=== PATIENT | female | born 1960 | race Caucasian/White ===

== ENCOUNTER 2018-09-23 16:36 | Emergency (ER) | payer OTHER ==
--- OUTSIDE RECORDS SUMMARY | 2018-09-23 16:38 | XMS REPORT | Clinical Summary ---
:1960 Author Organization [facility] Address [address] [place] [id number] Care Team Providers Name Role Phone Emely Oropeza MD Primary Care Provider Allergies Active Allergy Reactions Severity Noted Date Comments Amoxicillin-Pot Clavulanate GI Intolerance 01/25/2017 Cephalexin 10/24/2015 CHEST PAIN, SHORT OF BREATH Sulfa (Sulfonamide Rash Low 10/24/2015 Antibiotics) Medications Medication Sig Dispensed Refills Start Date End Date Status fluticasone (FLONASE) 2 sprays by Each 16 g 11 10/02/2016 Active 50 mcg/actuation nasal Nare route daily. sprayIndications: Non-seasonal allergic rhinitis due to other allergic trigger Active Problems Problem Noted Date Acute bronchitis 10/24/2015 Atopic rhinitis 10/24/2015 Benign essential HTN 10/24/2015 Diarrhea 10/24/2015 Lumbar sprain 10/24/2015 Menopausal symptom 10/24/2015 Right upper quadrant pain 10/24/2015 Family History Medical History Relation Name Comments Heart disease Father at work while laughing, GM 98%. Heart disease Mother after second bypass 09/14. at 80. Hypertension Mother Relation Name Status Comments Father Mother Social History Tobacco Use Types Packs/Day Years Used Date Never Smoker Tobacco Cessation: Counseling Given: No Alcohol Use Drinks/Week oz/Week Comments No Sex Assigned at Date Recorded Not on file Job Start Date Occupation Industry Not on file Not on file Not on file Travel History Travel Start Travel End No recent travel history available. Last Filed Vital Signs Not on file Plan of Treatment Health Maintenance Due Date Last Done Comments CERVICAL CANCER SCREENING 1982 BREAST CANCER SCREENING 12/17/2011 SHINGLES VACCINES (#1) 12/17/2011 INFLUENZA VACCINE 02/26/2018 COLON CANCER SCREENING 11/26/2018 11/26/2008 Results Not on fileafter 09/22/2017 Insurance Payer Benefit Plan / Group Subscriber ID Type Phone Address AETNA AETNA HMO,POS,EPO, MC/EC xxxxxxxxx HMO Advance Directives Patient has advance care planning documents on file. For more information, please contact:Alberto Brown[address] [place] [address]
[2018-09-23 17:38] LABS: Absolute Lymphocytes (CBC) 3.1 K/uL (0.7-4.9); Absolute Monocytes 0.7 K/uL (0.1-1.3); Absolute Neutrophil 5.8 K/uL (1.8-8.0); Basophils % 0.7 % (0-1.3); Eosinophils % 0.9 % (0-4.4); Hematocrit 41.8 % (36.0-45.0); Lymphocytes % 31.8 % (15.3-44.8); MPV 8.4 fL (7.6-11.3); Monocytes % 7.5 % (3.3-12.3); Protime INR 1.03; RBC Red Blood Cell Count 4.75 M/uL (3.86-4.86)
[2018-09-23] MEDS ORDERED: MEPERIDINE HCL 25 MG/0.5 ML ONE (17:47)
[2018-09-23] MEDS ORDERED: CYCLOBENZAPRINE 10 MG TAB ONE (17:47)
[2018-09-23] MEDS ORDERED: DEXAMETHASONE 4 MG/ML VIAL ONE (17:47)
[2018-09-23 17:53] LABS: ALT/SGPT 29 U/L (12-78); AST/SGOT 22 U/L (15-37); Albumin 4.1 g/dL (3.4-5.0); Alkaline Phosphatase 66 U/L (45-117); BUN Blood Urea Nitrogen 17 mg/dL (7-18); Bicarbonate 28 mmol/L (21-32); Bilirubin Direct < 0.1 mg/dL (0-0.2); Bilirubin Total 0.3 mg/dL (0.2-1.0); Glucose Level 95 mg/dL (74-106); Magnesium 2.3 mg/dL (1.8-2.4); NT PRO-BNP 65 pg/mL (<125); Potassium 4.2 mmol/L (3.5-5.1); Protein, Total 7.8 g/dL (6.4-8.2); Sodium Level 139 mmol/L (136-145); Troponin (Emerg Dept Use Only) < 0.02 ng/mL (0.0-0.045)
--- NOTE | 2018-09-23 18:34 | EDPHYS ---
Physician Documentation [facility] Name: Manda Paula Age: 57 yrs Sex: Female : 1960 Arrival Date: 09/23/2018 Time: 16:40 Bed 24 Private MD: Nicolette Alvarez K ED Physician Andrea Cruz HPI: 09/23 17:25 This 57 yrs old Female presents to ER via Ambulatory with complaints of Arm rn Pain, Shoulder Pain. 17:25 The patient or guardian complains of pain, that is acute. The complaints affect the rn anterior aspect of left shoulder and left bicep. Onset: The symptoms/episode began/occurred this morning. Modifying factors: The symptoms are alleviated by remaining still, the symptoms are aggravated by movement, lifting weight. Severity of symptoms: At their worst the symptoms were moderate, in the emergency department the symptoms are unchanged. The patient has experienced similar episodes in the past. Reports several similar episodes in past, thinks pulled muscle or something, woke up with pain, worse with movement of arm, no chest pain/sob. Had recent negative mammogram last month. Seen by pcp today and sent here to make sure it wasn't her heart. No fever/cough/abd pain. No vomiting. . Historical: - Allergies: 16:54 Sulfa (Sulfonamide Antibiotics); ph - Home Meds: 16:54 losartan oral oral [Active]; ph - PMHx: 16:54 Hypertension; ph - PSHx: 16:54 Tubal ligation; Hysterectomy; upper gi; lower gi; ph - Immunization history:: Adult Immunizations unknown. - Social history:: Smoking status: Patient/guardian denies using tobacco. - Ebola Screening: : No symptoms or risks identified at this time. - Family history:: not pertinent. - Hospitalizations: : No recent hospitalization is reported. ROS: 17:25 Constitutional: Negative for fever, chills, and weight loss, Eyes: Negative for injury, rn pain, redness, and discharge, ENT: Negative for injury, pain, and discharge, Neck: Negative for injury, pain, and swelling, Cardiovascular: Negative for chest pain, palpitations, and edema, Respiratory: Negative for shortness of breath, cough, wheezing, and pleuritic chest pain, Abdomen/GI: Negative for abdominal pain, nausea, vomiting, diarrhea, and constipation, MS/Extremity: + left arm pain radiates down arm Skin: Negative for injury, rash, and discoloration, Neuro: Negative for headache, weakness, numbness, tingling, and seizure. Exam: 17:25 Constitutional: This is a well developed, well nourished patient who is awake, alert, rn and in no acute distress. Head/Face: Normocephalic, atraumatic. Eyes: Pupils equal round and reactive to light, extra-ocular motions intact. Lids and lashes normal. Conjunctiva and sclera are non-icteric and not injected. Cornea within normal limits. Periorbital areas with no swelling, redness, or edema. Neck: Trachea midline, no thyromegaly or masses palpated, and no cervical lymphadenopathy. Supple, full range of motion without nuchal rigidity, or vertebral point tenderness. No Meningismus. Cardiovascular: Regular rate and rhythm. No pulse deficits. Respiratory: Lungs have equal breath sounds bilaterally, clear to auscultation. No increased work of breathing, no retractions or nasal flaring. Abdomen/GI: soft, non-tender Skin: Warm, dry with normal turgor. Normal color with no rashes, no lesions, and no evidence of cellulitis. MS/ Extremity: Pulses equal, no cyanosis. Neurovascular intact. Painful ROM of left shoulder, no deformity, no skin changes, no rashes, no cyanosis. Neuro: Awake and alert, GCS 15, oriented to person, place, time, and situation. Cranial nerves II-XII grossly intact. Motor strength 5/5 in all extremities. Sensory grossly intact. Cerebellar exam normal. Vital Signs: 16:55 BP 149 / 60; Pulse 71; Resp 18; Pulse Ox 100% on R/A; Weight 83.46 kg; Height 5 ft. 1 ph in. (154.94 cm); Pain 10/10; 17:50 BP 120 / 71; Pulse 72; Resp 18; Pulse Ox 97% on R/A; Pain 9/10; mg2 19:10 BP 123 / 69; Pulse 70; Resp 18; Temp 99; Pulse Ox 100% on R/A; Pain 3/10; mg2 16:55 Body Mass Index 34.77 (83.46 kg, 154.94 cm) ph MDM: 17:03 Patient medically screened. rn 18:30 Differential diagnosis: contusion, tendonitis, radiculopathy, referred pain, muscle rn spasm. Data reviewed: vital signs, nurses notes, lab test result(s), EKG, radiologic studies, plain films. Counseling: I had a detailed discussion with the patient and/or guardian regarding: the historical points, exam findings, and any diagnostic results supporting the discharge/admit diagnosis, lab results, radiology results, the need for outpatient follow up, to return to the emergency department if symptoms worsen or persist or if there are any questions or concerns that arise at home. Response to treatment: the patient's symptoms have markedly improved after treatment, and as a result, I will discharge patient. Special discussion: I discussed with the patient/guardian in detail that at this point there is no indication for admission to the hospital. It is understood, however, that if the symptoms persist or worsen the patient needs to return immediately for re-evaluation. ED course: Left arm pain with negative w/u, neg trop, normal ECG, no cardiac or pulmonary etiology found. Improved withmeds, will dc home with steroids, pain meds, muscle relaxer, and pcp f/u. Return precautions given and understood, explained to her that this could be early in process and if anything changes or worsens to come back immediately. . 09/23 16:53 Order name: Basic Metabolic Panel; Complete Time: 17:55 [facility] [place] 16:53 Order name: CBC with Diff; Complete Time: 17:55 09/23 16:53 Order name: LFT's; Complete Time: 17:55 09/23 16:53 Order name: Magnesium; Complete Time: 17:55 09/23 16:53 Order name: NT PRO-BNP; Complete Time: 17:55 09/23 16:53 Order name: PT-INR; Complete Time: 17:55 09/23 16:53 Order name: Troponin (emerg Dept Use Only); Complete Time: 17:55 09/23 16:53 Order name: XRAY Chest (1 view) 09/23 16:53 Order name: EKG; Complete Time: 16:54 mg2 09/23 16:53 Order name: Cardiac monitoring; Complete Time: 17:33 mg2 09/23 16:53 Order name: EKG - Nurse/Tech; Complete Time: 17:06 mg2 09/23 16:53 Order name: IV Saline Lock; Complete Time: 17:33 mg2 09/23 16:53 Order name: Labs collected and sent; Complete Time: : mg2 09/23 16:53 Order name: O2 Per Protocol; Complete Time: : mg2 09/23 16:53 Order name: O2 Sat Monitoring; Complete Time: : mg2 Administered Medications: 17:46 Drug: Decadron - Dexamethasone 10 mg Route: IVP; Site: right antecubital; mg2 19:00 Follow up: Response: No adverse reaction; Marked relief of symptoms mg2 17:46 Drug: Demerol 25 mg Route: IVP; Site: right antecubital; mg2 19:00 Follow up: Response: No adverse reaction; Marked relief of symptoms mg2 17:46 Drug: Flexeril 10 mg Route: PO; mg2 19:00 Follow up: Response: No adverse reaction; Marked relief of symptoms mg2 18:59 Drug: TORadol 30 mg Route: IVP; Site: right antecubital; mg2 18:59 Follow up: Response: No adverse reaction; Medication administered at discharge. mg2 Disposition: 09/23/18 18:33 Discharged to Home. Impression: Pain in left upper arm, Radiculopathy, cervical region, Muscle spasm. - Condition is Stable. - Discharge Instructions: Cervical Radiculopathy, Musculoskeletal Pain, Pain Without a Known Cause. - Prescriptions for Ultram 50 mg Oral Tablet - take 1 tablet by ORAL route every 6 hours As needed; 20 tablet. Cyclobenzaprine 10 mg Oral Tablet - take 1 tablet by ORAL route every 8 hours As needed; 20 tablet. Medrol (Farooq) 4 mg Oral Tablets, Dose Pack - take 1 tablet by ORAL route as directed - follow package instructions; 1 packet. - Medication Reconciliation Form, Thank You Letter, Antibiotic Education, Prescription Opioid Use form. - Follow up: Private Physician; When: 2 - 3 days; Reason: Recheck today's complaints, Re-evaluation by your physician. - Problem is new. - Symptoms have improved. Signatures: Dispatcher [employer] EDMS Andrea Cruz MD MD rn Hall, Patricia, RN RN Ancelmo Perez RN RN mg2 Corrections: (The following items were deleted from the chart) 17:30 17:25 Constitutional: This is a well developed, well nourished patient who is awake, rn alert, and in no acute distress. Head/Face: Normocephalic, atraumatic. Eyes: Pupils equal round and reactive to light, extra-ocular motions intact. Lids and lashes normal. Conjunctiva and sclera are non-icteric and not injected. Cornea within normal limits. Periorbital areas with no swelling, redness, or edema. Cardiovascular: Regular rate and rhythm. No pulse deficits. Respiratory: Lungs have equal breath sounds bilaterally, clear to auscultation. No increased work of breathing, no retractions or nasal flaring. Abdomen/GI: soft, non-tender Skin: Warm, dry with normal turgor. Normal color with no rashes, no lesions, and no evidence of cellulitis. MS/ Extremity: Pulses equal, no cyanosis. Neurovascular intact. Painful ROM of left shoulder, no deformity, no skin changes, no rashes, no cyanosis. Neuro: Awake and alert, GCS 15, oriented to person, place, time, and situation. Cranial nerves II-XII grossly intact. Motor strength 5/5 in all extremities. Sensory grossly intact. Cerebellar exam normal. rn 19:11 18:33 09/23/2018 18:33 Discharged to Home. Impression: Pain in left upper arm; mg2 Radiculopathy, cervical region; Muscle spasm. Condition is Stable. Forms are Medication Reconciliation Form, Thank You Letter, Antibiotic Education, Prescription Opioid Use. Follow up: Private Physician; When: 2 - 3 days; Reason: Recheck today's complaints, Re-evaluation by your physician. Problem is new. Symptoms have improved. rn
--- NOTE | 2018-09-23 18:34 | ER ---
Nurse's Notes [facility] Name: Manda Paula Age: 57 yrs Sex: Female : 1960 Arrival Date: 09/23/2018 Time: 16:40 Bed 24 Private MD: Nicolette Alvarez K Diagnosis: Pain in left upper arm;Radiculopathy, cervical region;Muscle spasm Presentation: 09/23 16:52 Presenting complaint: Patient states: L arm and shoulder pain that radiates to L hand ph and L side of neck, also c/o nausea, reports that pain began this morning, denies SOB, dizziness, or palpitations. Transition of care: patient was not received from another setting of care. Onset of symptoms was September 23, 2018. Risk Assessment: Do you want to hurt yourself or someone else? Patient reports no desire to harm self or others. Initial Sepsis Screen: Does the patient meet any 2 criteria? No. Patient's initial sepsis screen is negative. Does the patient have a suspected source of infection? No. Patient's initial sepsis screen is negative. Care prior to arrival: None. 16:52 Method Of Arrival: Ambulatory ph 16:52 Acuity: MIRLANDE 3 ph Historical: - Allergies: 16:54 Sulfa (Sulfonamide Antibiotics); ph - Home Meds: 16:54 losartan oral oral [Active]; ph - PMHx: 16:54 Hypertension; ph - PSHx: 16:54 Tubal ligation; Hysterectomy; upper gi; lower gi; ph - Immunization history:: Adult Immunizations unknown. - Social history:: Smoking status: Patient/guardian denies using tobacco. - Ebola Screening: : No symptoms or risks identified at this time. - Family history:: not pertinent. - Hospitalizations: : No recent hospitalization is reported. Screenin:49 Abuse screen: Denies threats or abuse. Denies injuries from another. Nutritional mg2 screening: No deficits noted. Tuberculosis screening: No symptoms or risk factors identified. Fall Risk IV access (20 points). Assessment: 17:46 General: Appears in no apparent distress. comfortable, Behavior is calm, cooperative. mg2 Pain: Complains of pain in chest Pain radiates to anterior aspect of left shoulder Pain currently is 9 out of 10 on a pain scale. Quality of pain is described as aching, Pain began gradually, this morning Is intermittent. Neuro: Level of Consciousness is awake, alert, obeys commands, Oriented to person, place, time, situation. Cardiovascular: Reports chest pain, Capillary refill < 3 seconds Patient's skin is warm and dry. Respiratory: Airway is patent Respiratory effort is even, unlabored, Respiratory pattern is regular, symmetrical. GI: No signs and/or symptoms were reported involving the gastrointestinal system. : No signs and/or symptoms were reported regarding the genitourinary system. EENT: No signs and/or symptoms were reported regarding the EENT system. Derm: Skin is intact, is healthy with good turgor, Skin is pink, warm \T\ dry. normal. Musculoskeletal: Reports pain in anterior aspect of left shoulder. 19:00 Reassessment: Patient states feeling better. mg2 Vital Signs: 16:55 BP 149 / 60; Pulse 71; Resp 18; Pulse Ox 100% on R/A; Weight 83.46 kg; Height 5 ft. 1 ph in. (154.94 cm); Pain 10/10; 17:50 BP 120 / 71; Pulse 72; Resp 18; Pulse Ox 97% on R/A; Pain 9/10; mg2 19:10 BP 123 / 69; Pulse 70; Resp 18; Temp 99; Pulse Ox 100% on R/A; Pain 3/10; mg2 16:55 Body Mass Index 34.77 (83.46 kg, 154.94 cm) ph ED Course: 16:40 Patient arrived in ED. mr 16:40 Nicolette Alvarez MD is Private Physician. mr 16:51 Ancelmo Perez, JEREMIAH is Primary Nurse. mg2 16:53 Triage completed. ph 16:58 Arm band placed on Patient placed in an exam room. ph 17:03 Andrea Cruz MD is Attending Physician. rn 17:11 XRAY Chest (1 view) In Process Unspecified. EDMS 17:17 EKG done, by environmental tech. reviewed by Andrea Cruz MD. sm3 17:49 No provider procedures requiring assistance completed. Inserted saline lock: 20 gauge mg2 in right antecubital area, using aseptic technique. Blood collected. 17:50 Patient has correct armband on for positive identification. mg2 19:10 IV discontinued, intact, bleeding controlled, No redness/swelling at site. Pressure mg2 dressing applied. Administered Medications: 17:46 Drug: Decadron - Dexamethasone 10 mg Route: IVP; Site: right antecubital; mg2 19:00 Follow up: Response: No adverse reaction; Marked relief of symptoms mg2 17:46 Drug: Demerol 25 mg Route: IVP; Site: right antecubital; mg2 19:00 Follow up: Response: No adverse reaction; Marked relief of symptoms mg2 17:46 Drug: Flexeril 10 mg Route: PO; mg2 19:00 Follow up: Response: No adverse reaction; Marked relief of symptoms mg2 18:59 Drug: TORadol 30 mg Route: IVP; Site: right antecubital; mg2 18:59 Follow up: Response: No adverse reaction; Medication administered at discharge. mg2 Outcome: 18:33 Discharge ordered by . rn 19:10 Discharged to home ambulatory, with family. mg2 19:10 Condition: stable 19:10 Discharge instructions given to patient, family, Instructed on discharge instructions, follow up and referral plans. medication usage, Demonstrated understanding of instructions, follow-up care, medications, Prescriptions given X 3. 19:11 Patient left the ED. mg2 Signatures: Dispatcher [employer] Lashay Srinivasan Roman, MD MD rn Hall, Patricia, RN RN Ancelmo Perez RN RN [facility] [place] Julien 3
--- NOTE | 2018-09-23 19:02 | RAD REPORT ---
EXAM DESCRIPTION: RAD - Chest Single View - 09/23/2018 5:09 pm CLINICAL HISTORY: Left-sided chest pain, left arm and shoulder pain COMPARISON: June 2013 TECHNIQUE: AP portable chest image was obtained 1707 hours . FINDINGS: Lungs are clear. Heart and vasculature are normal. No measurable pleural effusion and no p neumothorax. No acute bony abnormality seen. No acute aortic findings suspected. IMPRESSION: No acute cardiopulmonary process. No significant change from comparison.
--- NOTE | 2018-09-24 06:57 | EKG ---
Test Date: 2018-09-23 Test Time: 16:54:04 Tank Car Mechanic: NIXON MEASUREMENT RESULTS: Intervals: Rate: 67 MS: 138 QRSD: 78 QT: 404 QTc: 426 [place]: P: 17 MS: 138 QRS: 9 T: 22 INTERPRETIVE STATEMENTS: Normal sinus rhythm Normal ECG No previous ECG available for comparison Electronically Signed On 09-24-18 06:56:03 INFECTIOUS DISEASES PHYSICIAN by Adryan Pacheco
== END 2018-09-23 19:11 | disposition home or self-care (01) ==
LOC: ER 16:36
DX: M54.12 Radiculopathy, cervical region (principal); M62.838 Other muscle spasm; I10 Essential (primary) hypertension; Z88.2 Allergy status to sulfonamides
CPT/HCPCS: 36415; 71045; 80048; 80076; 83735; 83880; 84484; 85025; 85610; 93005; 96374; 96375; 99284; J2175

== ENCOUNTER 2020-11-07 08:31 | Day surgery (SDC) | payer OTHER ==
[2020-11-04 11:38] LABS: Absolute Lymphocytes (CBC) 2.4 K/uL (0.7-4.9); Basophils % 0.7 % (0-1.3); Hematocrit 40.8 % (36.0-45.0); Lymphocytes % 34.2 % (15.3-44.8); MPV 7.9 fL (7.6-11.3)
[2020-11-04 11:52] LABS: ALT/SGPT 30 U/L (12-78); AST/SGOT 20 U/L (15-37); Albumin 3.8 g/dL (3.4-5.0); Alkaline Phosphatase 78 U/L (45-117); Amylase 50 U/L (25-115); BUN Blood Urea Nitrogen 11 mg/dL (7-18); Bicarbonate 32 mmol/L (21-32); Bilirubin Direct < 0.1 mg/dL (0-0.2); Bilirubin Total 0.3 mg/dL (0.2-1.0); Glucose Level 105 mg/dL (74-106); Lipase 184 U/L (73-393); Potassium 3.8 mmol/L (3.5-5.1); Protein, Total 7.6 g/dL (6.4-8.2); Sodium Level 141 mmol/L (136-145)
--- NOTE | 2020-11-04 11:53 | RAD REPORT ---
EXAM DESCRIPTION: RAD - Chest Pa And Lat (2 Views) - 11/04/2020 11:18 am CLINICAL HISTORY: preop, pending cholecystectomy, history of hypertension COMPARISON: August 2018 portable TECHNIQUE: Frontal and lateral views of the chest were obtained. FINDINGS: The lungs are clear. Few small punctate granulomas are present and stable. Interstitial p attern is stable. Heart size is normal and central vasculature is within normal limits. No pleural e ffusion or pneumothorax seen. No acute bony finding noted. No aortic abnormality. IMPRESSION: No acute cardiopulmonary process. No significant change from comparison study.
--- NOTE | 2020-11-04 12:45 | EKG ---
Test Date: 2020-11-04 Test Time: 10:05:33 Sign Out Clerk: REINALDO MEASUREMENT RESULTS: Intervals: Rate: 63 FL: 134 QRSD: 74 QT: 396 QTc: 405 [place]: P: 26 FL: 134 QRS: 51 T: 53 INTERPRETIVE STATEMENTS: Normal sinus rhythm Normal ECG Compared to ECG 09/23/2018 16:54:04 No significant changes Electronically Signed On 11-04-20 12:45:01 CDT by Adryan Pacheco
[2020-11-07] MEDS ORDERED: Ringers Lactate 1,000 ML IV ONE (09:23)
[2020-11-07] MEDS ORDERED: CEFOXITIN/SWI 1gm 1 GM/10 ML SYR ONE (09:23)
[2020-11-07] MEDS ORDERED: FENTANYL CITR 100 MCG/2 ML ONE (09:58)
[2020-11-07] MEDS ORDERED: propofoL 200 MG/20 ML VIAL IV ONE (09:58)
[2020-11-07] MEDS ORDERED: LIDOCAINE 1% MPF 5 ML VIAL ONE (09:58)
[2020-11-07] MEDS ORDERED: MIDAZOLAM HCL 2 MG/2 ML INJ ONE (09:58)
[2020-11-07] MEDS ORDERED: ROCURONIUM 50 MG/5 ML VIAL IV ONE (10:09)
[2020-11-07] MEDS ORDERED: GLYCOPYRROLATE 0.2 MG/ML SYR ONE ×2 (10:25→10:40)
[2020-11-07] MEDS ORDERED: KETOROLAC 30 MG/ML INJ ONE (10:35)
[2020-11-07] MEDS ORDERED: dexAMETHasone 10 MG/ML VIAL ONE (10:35)
[2020-11-07] MEDS ORDERED: ONDANSETRON 4 MG/2 ML VIAL ONE (10:36)
--- NOTE | 2020-11-07 10:37 | P.BOP ---
Preoperative diagnosis: Acute cholecystitis, sympt cholelithiasis Postoperative diagnosis: same Primary procedure: Lap cholecystectomy Marine Specialist: Lizzie Sanchez ([place]) Estimated blood loss: <10cc Specimen: gb Findings: as above Anesthesia: General Complications: None Transferred to: Recovery Room Condition: Good
[2020-11-07] MEDS ORDERED: NEOSTIGMINE 1 MG/ML -5 ML ONE (10:40)
[2020-11-07] MEDS: MEPERIDINE HCL 25 MG/ML SYR ONE ×2 (10:57→11:02)
--- NOTE | 2020-11-07 11:11 | OP ---
Date of Procedure: 11/07/2020 Surgeon: Yung Russell MD Preoperative Diagnosis: Acute cholecystitis, symptomatic cholelithiasis. Postoperative Diagnosis: Acute cholecystitis, symptomatic cholelithiasis. Procedure: Laparoscopic cholecystectomy. Anesthesia: General plus local. Complications: None. Estimated Blood Loss: Less than 10 mL. Indications: This is the case of a 59-year-old patient, who comes to us with above diagnosis. I ful ly explained the benefits, alternatives, and risks of laparoscopic possible open cholecystectomy whic h include, but not limited to infection, bleeding, damage to adjacent structures, anesthesia complica tion, choledocholithiasis, bile leak, pancreatitis, DE and even . She also understands this may not any relieve symptoms. She might need more than one surgical intervention. She understood, sign ed a consent. Procedure In Detail: The patient was brought to the operating room and placed in supine position. A nesthesia was done without complication. A time-out was called. Abdomen was prepped and draped in a sterile fashion. Local anesthesia was applied followed by sharp incision of the skin in the infraum bilical region. The incision was carried down to fascia, which was opened under direct vision. Rebecca toneum was encountered and opened under direct vision. Vicryl #1 was placed inside the fascia. Alexx on trocar was carefully introduced. No bleeding was obtained. I placed 3 more trocars, 5 mm each on e of them, 1 in the epigastric area, 2 in the right upper quadrant using same technique which was con sisted of local anesthetic, sharp incision of the skin and introduction of the trocars under direct v ision. This allowed me to put a grasper in the fundus of the gallbladder, another grasper in the inf undibulum retracting the gallbladder in the inferolateral fashion exposing the triangle of Calot and obtaining critical view. Cystic duct and cystic artery were clearly isolated, freed circumferentiall y and a connection between those and the gallbladder was clearly identified. I proceeded to ligate t hose by using at least 3 clips proximal, 1 clip distal, ligation in middle. Same was done with the c ystic artery. No bile leak. No bleeding. The gallbladder was removed from the liver using Bovie ca uterizer and removed from abdominal cavity using EndoCatch through the umbilical incision. The area was inspected once again. No bile leak, no bleeding. At that moment, I proceeded to remove the troc ars under direct vision. Deflated pneumoperitoneum. Closed the fascia with #1 Vicryl. Irrigated th e subcutaneous tissue, closed with 3-0 chromic and skin in a subcuticular fashion with 3-0 chromic an d Steri-Strips on top. Sponge count and instrument counts were correct. The patient tolerated the p rocedure well. The patient was sent to recovery in stable condition. TYRA/JESUSITA Voice ID: [id number] Report ID: [id number]
--- NOTE | 2020-11-07 11:17 | DS ---
Diagnosis: Acute cholecystitis, symptomatic cholelithiasis. Procedure: Laparoscopic cholecystectomy. Disposition: Home. Activity: As tolerated. No heavy lifting. Plan: Follow up in my office in 1 week. Call for appointment at [phone]. Keep area dry for 48 pepe rs, then may shower. Keep Steri-Strip intact. Medications: Include Augmentin 875 p.o. q.12, Tylenol No.3 q.4 hours p.r.n. pain, and Zofran 4 q.6 p .r.n. nausea. TYRA/JESUSITA Voice ID: [id number] Report ID: [id number]
[2020-11-07] MEDS ORDERED: CODEINE 30MG/APAP 300MG TAB ONE (12:17)
[2020-11-07 13:55] VITALS: BP 119/62; TEMP 98; O2SAT 98
== END 2020-11-07 12:55 | disposition home or self-care (01) ==
LOC: OR 08:31
PROVIDERS: ATTEND Surgery
PROC: 0FT44ZZ Resection of Gallbladder, Percutaneous Endoscopic Approach (ICD-10-PCS; principal; 2020-11-07 10:00)
DX: K80.12 Calculus of gallbladder with acute and chronic cholecystitis without obstruction (principal); Z20.822 Contact with and (suspected) exposure to COVID-19; Z88.2 Allergy status to sulfonamides
CPT/HCPCS: 93005; 85025; 80048; 36415; 82150; 80076; 88304; 83690; 71046; 47562; U0003; J2704; J2250; J3010; J1100; J2175; J2710; J7120; J2405